=== PATIENT | male | born 1985 | race Hispanic/Latino ===

== ENCOUNTER 2016-08-05 20:33 | Observation (INO) | payer OTHER ==
[2016-08-05] MEDS ORDERED: Sodium Chloride 0.9% 1,000 ML IV STA (22:14)
--- NOTE | 2016-08-05 22:18 | ED PDOC ---
HPI: Abdomen Time Seen by Provider: 08/05/16 22:02 Chief Complaint (Nursing): Abdominal Pain Chief Complaint (Provider): abdominal pain History Per: Patient History/Exam Limitations: no limitations Onset/Duration Of Symptoms: Days (1) Current Symptoms Are (Timing): Better Location Of Pain/Discomfort: RLQ Quality Of Discomfort: Cramping, "Pain" Associated Symptoms: denies: Fever, Chills, Nausea, Vomiting, Diarrhea, Constipation, Urinary Symptoms Additional History Per: Patient Additional Complaint(s): 31 y/o male presents for eval of intermittent abdominal pain x 1 day. Patient notes pain started diffuse, has since localized to right lower abdomen. Patient notes slight improvement of symptoms after passing gas. Denies fever, cough, congestion, nausea/vomiting, changes in bowel movements (last BM today), recent travel, sick contacts. Past Medical History Reviewed: Historical Data, Nursing Documentation, Vital Signs Vital Signs: Last Vital Signs Temp 98.4 F 08/05/16 20:58 Pulse 79 08/05/16 20:58 Resp 16 08/05/16 20:58 BP 149/76 08/05/16 20:58 Pulse Ox 99 08/05/16 22:18 - Medical History PMH: No Chronic Diseases - Surgical History Surgical History: No Surg Hx - Family History Family History: States: Unknown Family Hx - Living Arrangements Living Arrangements: With Family - Home Medications Home Medications: Ambulatory Orders Medication Instructions Recorded No Known Home Med 08/05/16 - Allergies Allergies/Adverse Reactions: Allergies Allergy/AdvReac Type Severity Reaction Status Date / Time amoxicillin [From Amoxil] Allergy RASH Verified 08/05/16 21:03 Penicillins Allergy RASH Verified 08/05/16 21:03 Review of Systems ROS Statement: Except As Marked, All Systems Reviewed And Found Negative Gastrointestinal: Positive for: Abdominal Pain Physical Exam - Reviewed Nursing Documentation Reviewed: Yes Vital Signs Reviewed: Yes - Physical Exam Appears: Positive for: Well, Non-toxic, No Acute Distress Cardiovascular/Chest: Positive for: Regular Rate, Rhythm Respiratory: Positive for: Normal Breath Sounds Gastrointestinal/Abdominal: Positive for: Bowel Sounds, Soft, Tenderness (rlq; negative psoas, obturator). Negative for: Distended, Guarding, Rebound Back: Positive for: Normal Inspection Extremity: Positive for: Normal ROM Neurologic/Psych: Positive for: Alert, Oriented - Laboratory Results Result Diagrams: 08/05/16 22:42 08/05/16 22:42 - ECG O2 Sat by Pulse Oximetry: 99 - Progress ED Course And Treament: labs, CT abd/pelvis, IV fluids EXAM: CT Abdomen and Pelvis With Intravenous Contrast CLINICAL HISTORY: 31 years old, male; Pain; Abdominal pain; Localized; Right lower quadrant (rlq) ; Additional info: Rlq pain TECHNIQUE: Axial computed tomography images of the abdomen and pelvis with intravenous contrast. This CT exam was performed using one or more of the following dose reduction techniques : automated exposure control, adjustment of the mA and/or kV according to patient size, and/ or use of iterative reconstruction technique. Coronal and sagittal reformatted images were created and reviewed. CONTRAST: 90 mL of [id number] administered intravenously. EXAM DATE/TIME: Exam ordered 08/05/2016 10:14 PM COMPARISON: No relevant prior studies available. FINDINGS: Lower thorax: No acute findings. ABDOMEN: Liver: Unremarkable. No mass. Gallbladder and bile ducts: Unremarkable. No calcified stones. No ductal dilation. Pancreas: Unremarkable. No mass. No ductal dilation. Spleen: Unremarkable. No splenomegaly. Adrenals: Unremarkable. No mass. Kidneys and ureters: There is a left renal cyst measuring up to 7 mm. No hydronephrosis. Stomach and bowel: Unremarkable. No obstruction. No mucosal thickening. Appendix: The appendix measures 7-8 mm in diameter with no definite surrounding induration. PELVIS: Bladder: Unremarkable. No mass. Reproductive: Unremarkable as visualized. ABDOMEN and PELVIS: Intraperitoneal space: Unremarkable. No free air. No significant fluid collection. Bones/joints: No acute fracture. No dislocation. Soft tissues: Unremarkable. Vasculature: Unremarkable. No abdominal aortic aneurysm. Lymph nodes: Unremarkable. No enlarged lymph nodes. IMPRESSION: 1. Borderline size of the appendix with no definite surrounding induration and is thought to be within normal limits. 2. Otherwise negative CT abdomen/pelvis. Patient evaluated by ED attending Dr. Wayne; will place in observation status for surgical consult. Case discussed with Dr. Hirsch, surgical nurse practitioner on-call, regarding consult. Case discussed with Dr. Riddle, Hospitalist on-call, for placement in observation med/surg. Disposition - Clinical Impression Clinical Impression: Abdominal pain - Disposition Disposition Time: 01:45 Condition: FAIR - Pt Status Changed To: Hospital Disposition Of: Observation
[2016-08-05 22:45] LABS: BASO % 0.6 % (0.0-2.0); EOS % 0.6 % (0.0-4.0); HEMATOCRIT 44.1 % (35.0-51.0); LYMPH # 2.3 K/uL (1.0-4.3); LYMPH % 30.6 % (20.0-40.0); MEAN CELL VOLUME 92.1 fl (80.0-94.0); MEAN CORPUSCULAR HEMOGLOBIN 31.4 pg (27.0-31.0); MEAN CORPUSCULAR HGB CONC 34.1 g/dL (33.0-37.0); MEAN PLATELET VOLUME 8.4 fl (7.2-11.7); MONO # 0.7 K/uL (0.0-0.8); MONO % 8.6 % (0.0-10.0); NEUT # 4.5 K/uL (1.8-7.0); NEUT % 59.6 % (50.0-75.0); NRBC % 0.1 % (0.0-0.0); RED CELL DISTRIBUTION WIDTH 12.7 % (11.5-14.5); WHITE BLOOD COUNT 7.6 K/uL (4.8-10.8)
[2016-08-05 22:54] LABS: ALB/GLOB RATIO 1.6 (1.0-2.1); ALKALINE PHOSPHATASE 71 U/L (38-126); ALT/SGPT 41 U/L (21-72); AST/SGOT 28 U/L (17-59); BILIRUBIN,TOTAL 1.3 mg/dl (0.2-1.3); BLOOD UREA NITROGEN 15 mg/dl (9-20); CALCIUM 9.7 mg/dL (8.4-10.2); CARBON DIOXIDE 25 mmol/L (22-30); CHLORIDE 103 mmol/L (98-107); GFR AFRICAN-AMERICAN > 60; GLUCOSE,RANDOM 98 mg/dL (75-110); POTASSIUM 4.4 MMOL/L (3.6-5.0); SODIUM 140 mmol/l (132-148); TOTAL PROTEIN 8.2 G/DL (6.3-8.2)
[2016-08-05] MEDS ORDERED: Iohexol 300 50 ML ONE (23:03)
[2016-08-05] MEDS ORDERED: Sodium Chloride 0.9% 50 ML IV ONE (23:03)
[2016-08-05 23:54] LABS: PARTIAL THROMBOPLASTIN TIME 25.1 SECONDS (23.3-32.5)
--- NOTE | 2016-08-06 01:15 | CP.PCM.CON ---
<TorreyCampbell D - Last Filed: 08/06/16 01:09> History of Present Illness - History of Present Illness History of Present Illness: SURGERY CONSULT NOTE FOR DR. CONLEY 31M presents to [facility] with abdominal discomfort that he states began in the morning after a day of drinking alcohol yesterday for . Patient states he had a mixture of cheese and beer which may have caused his discomfort. He states the discomfort was diffuse and has now fully resolved. He denies any nausea or vomiting, but states he has been increasingly gassy today and feels better after passing gas. He denies any change in his bowel movement. Last time patient ate was at lunch time with no problems and states he is currently hungry. PMH: denies PSH: Colonoscopy FH: Father and grandmother diagnosed with polyps/Colon [place] Social: admits to cigars, and alcohol, denies illicit drugs Allergies: Penicillin, seasonal Past Patient History - Past Social History Smoking Status: Never Smoked - PSYCHIATRIC Hx Substance Use: No - SURGICAL HISTORY Hx Surgeries: No - ANESTHESIA Hx Anesthesia: No Meds Allergies/Adverse Reactions: Allergies Allergy/AdvReac Type Severity Reaction Status Date / Time amoxicillin [From Amoxil] Allergy RASH Verified 08/05/16 21:03 Penicillins Allergy RASH Verified 08/05/16 21:03 Physical Exam - Constitutional Appears: Non-toxic, No Acute Distress - Head Exam Head Exam: ATRAUMATIC - Eye Exam Eye Exam: EOMI, PERRL - ENT Exam ENT Exam: Mucous Membranes Moist - Respiratory Exam Respiratory Exam: Clear to Auscultation Bilateral, NORMAL BREATHING PATTERN - Cardiovascular Exam Cardiovascular Exam: REGULAR RHYTHM, +S1, +S2 - GI/Abdominal Exam GI & Abdominal Exam: Soft. absent: Distended, Firm, Guarding, Rebound, Rigid, Tenderness - Extremities Exam Extremities exam: Negative for: pedal edema, tenderness - Neurological Exam Neurological exam: Alert, Oriented x3 - Psychiatric Exam Psychiatric exam: Normal Affect, Normal Mood - Skin Skin Exam: Dry, Intact, Normal Color, Warm Results - Vital Signs Recent Vital Signs: Last Vital Signs Temp 98.4 F 08/05/16 20:58 Pulse 79 08/05/16 20:58 Resp 16 08/05/16 20:58 BP 149/76 08/05/16 20:58 Pulse Ox 99 08/05/16 22:18 - Labs Result Diagrams: 08/05/16 22:42 08/05/16 22:42 Labs: Laboratory Results - last 24 hr 08/05/16 08/05/16 08/05/16 22:42 22:42 22:42 WBC 7.6 RBC 4.79 Hgb 15.0 Hct 44.1 MCV 92.1 MCH 31.4 H MCHC 34.1 RDW 12.7 Plt Count 227 MPV 8.4 Neut % (Auto) 59.6 Lymph % (Auto) 30.6 [place] % (Auto) 8.6 Eos % (Auto) 0.6 Baso % (Auto) 0.6 Neut # 4.5 Lymph # 2.3 [place] # 0.7 Eos # 0.0 Baso # 0.0 PT 10.1 INR 0.97 APTT 25.1 Sodium 140 Potassium 4.4 Chloride 103 Carbon Dioxide 25 Anion Gap 16 BUN 15 Creatinine 0.8 Est GFR ( Amer) > 60 Est GFR (Non-Af Amer) > 60 Random Glucose 98 Calcium 9.7 Total Bilirubin 1.3 AST 28 ALT 41 Alkaline Phosphatase 71 Total Protein 8.2 Albumin 5.1 H Globulin 3.2 Albumin/Globulin Ratio 1.6 Assessment & Plan - Assessment and Plan (Free Text) Assessment: 31M presents with abdominal discomfort 2/2 likely gastritis vs appendicitis CT: Appendix 7mm with no induration, thought to be within normal/borderline limit Plan: - keep patient on observation - NPO, IVF, Pain control - serial abdominal exams - Re-evaluate patient in AM for any change in symptoms Discussed with Dr. Yael Hirsch, PGY1 <Galen Conley - Last Filed: 08/10/16 18:49> Results - Vital Signs Recent Vital Signs: Last Vital Signs Temp 98 F 08/06/16 08:00 Pulse 73 08/06/16 08:00 Resp 20 08/06/16 08:00 BP 125/78 08/06/16 08:00 Pulse Ox 99 08/06/16 08:00 - Labs Result Diagrams: 08/06/16 08:13 08/06/16 08:13 Attending/Attestation - Attestation I have personally seen and examined this patient.: Yes I have fully participated in the care of the patient.: Yes I have reviewed all pertinent clinical information: Yes Notes (Text): 08/10/16 18:49 Pt was seen and examined at bedside on 08/06/16 Agree with above note and assessment Pt with abdominal pain No clinical signs of acute appendicitis F/U as out pt.
[2016-08-06] MEDS ORDERED: Sodium Chloride 0.9% 1,000 ML IV SCH (01:30)
--- NOTE | 2016-08-06 02:19 | CP.PCM.HP ---
History of Present Illness - History of Present Illness History of Present Illness: PCP: None Chief Complaint: Abdominal Pain HPI: 31 years old male with no significant past medical hx comes with one day of cramping intermittent abdominal pains, starting at the periumbilical region and now is localized at the Right Lower quadrant. It has the character of a gas pain as per the patient. No nausea, vomits, diarrhea nor constipation, fever, chest pain, dysuria nor urinary frequency. He admits to drinking on the previous day and his last bowel movement was Prior to coming to the ED. PMD: No past medical hx PSH: Elisabeth past surgeries SH: Drinks Alcohol socially,No substance abuse, never smoked; Live with the family FH: Unknown Family Hx Allergies: Amoxicillin/ Penicillin Present on Admission - Present on Admission Any Indicators Present on Admission: No History of DVT/PE: No History of Uncontrolled Diabetes: No Urinary Catheter: No Decubitus Ulcer Present: No Review of Systems - Constitutional Constitutional: absent: Anorexia, Chills, Fatigue, Fever, Headache - EENT Eyes: absent: Diplopia, Floaters, Photophobia, Requires Corrective Lenses, Sees Flashes Ears: absent: Decreased Hearing, Ear Discharge, Ear Pain, Tinnitus Nose/Mouth/Throat: absent: Epistaxis, Nasal Congestion, Nasal Discharge, Sinus Pain, Sinus Pressure - Cardiovascular Cardiovascular: absent: Chest Pain, Dyspnea, Edema - Respiratory Respiratory: absent: Cough, Dyspnea, Wheezing - Gastrointestinal Gastrointestinal: Abdominal Pain. absent: Diarrhea, Nausea, Vomiting - Genitourinary Genitourinary: absent: Dysuria, Flank Pain, Hematuria, Urinary Frequency - Musculoskeletal Musculoskeletal: absent: Muscle Cramps, Muscle Weakness, Myalgias - Integumentary Integumentary: absent: Pruritus, Rash, Skin Ulcer, Sores, Striae, Swelling - Neurological Neurological: absent: Confusion, Focal Weakness, Headaches, Vertigo - Psychiatric Psychiatric: absent: Anxiety, Depression, Panic Attacks - Endocrine Endocrine: absent: Palpitations, Polydipsia, Polyphagia, Polyuria - Hematologic/Lymphatic Hematologic: absent: Easy Bleeding, Easy Bruising Past Patient History - Past Medical History & Family History Past Medical History?: No - Past Social History Smoking Status: Never Smoked Chewing Tobacco Use: No Cigar Use: No Alcohol: Occasional Drugs: Denies Home Situation {Lives}: With Family - CARDIAC Hx Cardiac Disorders: No - NEUROLOGICAL Hx Neurological Disorder: No - HEENT Hx HEENT Problems: No - RENAL Hx Chronic Kidney Disease: No - ENDOCRINE/METABOLIC Hx Endocrine Disorders: No - HEMATOLOGICAL/ONCOLOGICAL Hx Blood Disorders: No - INTEGUMENTARY Hx Dermatological Problems: No - MUSCULOSKELETAL/RHEUMATOLOGICAL Hx Musculoskeletal Disorders: No - GASTROINTESTINAL Hx Gastrointestinal Disorders: No - GENITOURINARY/GYNECOLOGICAL Hx Genitourinary Disorders: No - PSYCHIATRIC Hx Psychophysiologic Disorder: No Hx Substance Use: No - SURGICAL HISTORY Hx Surgeries: No - ANESTHESIA Hx Anesthesia: No Meds Allergies/Adverse Reactions: Allergies Allergy/AdvReac Type Severity Reaction Status Date / Time amoxicillin [From Amoxil] Allergy RASH Verified 08/05/16 21:03 Penicillins Allergy RASH Verified 08/05/16 21:03 Physical Exam - Constitutional Appears: No Acute Distress - Head Exam Head Exam: ATRAUMATIC, NORMAL INSPECTION, NORMOCEPHALIC - Eye Exam Eye Exam: EOMI, Normal appearance Pupil Exam: NORMAL ACCOMODATION, PERRL - ENT Exam ENT Exam: Mucous Membranes Moist, Normal Exam, Normal External Ear Exam, Normal Oropharynx - Neck Exam Neck exam: Positive for: Full Rom, Normal Inspection. Negative for: Lymphadenopathy, Tenderness - Respiratory Exam Respiratory Exam: Clear to Auscultation Bilateral. absent: Rales, Rhonchi, Wheezes - Cardiovascular Exam Cardiovascular Exam: REGULAR RHYTHM, RRR, +S1, +S2. absent: Gallop, JVD - GI/Abdominal Exam GI & Abdominal Exam: Diminished Bowel Sounds, Soft Additional comments: Flat Soft, Non tender on this exam, no guarding nor rebound tenderness, bowel sounds reduced. - Rectal Exam Rectal Exam: Deferred - Extremities Exam Extremities exam: Positive for: full ROM, normal inspection, pedal edema. Negative for: tenderness - Back Exam Back exam: NORMAL INSPECTION. absent: CVA tenderness (L), CVA tenderness (R) - Neurological Exam Neurological exam: Alert, CN II-XII Intact, Oriented x3, Reflexes Normal - Psychiatric Exam Psychiatric exam: Normal Affect, Normal Mood - Skin Skin Exam: Dry, Intact, Normal Color, Warm Results - Vital Signs Recent Vital Signs: Last Vital Signs Temp 98.2 F 08/06/16 01:59 Pulse 75 08/06/16 01:59 Resp 16 08/06/16 01:59 BP 122/62 08/06/16 01:59 Pulse Ox 98 08/06/16 01:59 - Labs Result Diagrams: 08/05/16 22:42 08/05/16 22:42 Labs: Laboratory Results - last 24 hr 08/06/16 01:45 Lipase 63 - Imaging and Cardiology CT scan - abdomen Status: Report reviewed by me Additional comment: FINDINGS: Lower thorax: No acute findings. ABDOMEN: Liver: Unremarkable. No mass. Gallbladder and bile ducts: Unremarkable. No calcified stones. No ductal dilation. Pancreas: Unremarkable. No mass. No ductal dilation. Spleen: Unremarkable. No splenomegaly. Adrenals: Unremarkable. No mass. Kidneys and ureters: There is a left renal cyst measuring up to 7 mm. No hydronephrosis. Stomach and bowel: Unremarkable. No obstruction. No mucosal thickening. Appendix: The appendix measures 7-8 mm in diameter with no definite surrounding induration. PELVIS: Bladder: Unremarkable. No mass. Reproductive: Unremarkable as visualized. ABDOMEN and PELVIS: Intraperitoneal space: Unremarkable. No free air. No significant fluid collection. Bones/joints: No acute fracture. No dislocation. Soft tissues: Unremarkable. Vasculature: Unremarkable. No abdominal aortic aneurysm. Lymph nodes: Unremarkable. No enlarged lymph nodes. IMPRESSION: 1. Borderline size of the appendix with no definite surrounding induration and is thought to be within normal limits. 2. Otherwise negative CT abdomen/pelvis. Assessment & Plan - Assessment and Plan (Free Text) Assessment: #. Abdominal pain Plan: 31 years old male with no significant past medical hx comes with one day of cramping intermittent abdominal pains, starting at the periumbilical region and now is localized at the Right Lower quadrant. #. Abdominal pain r/o appendicitis -Consult Surgery Dr Conley - NPO - IV Fluids - Follow CBC #. DVT Prophylaxis with SCD #. Code Status: Full - Date & Time Date: 08/06/16 Time: 02:19
[2016-08-06 08:27] LABS: HEMATOCRIT 42.9 % (35.0-51.0); MEAN CELL VOLUME 91.8 fl (80.0-94.0); MEAN CORPUSCULAR HEMOGLOBIN 31.4 pg (27.0-31.0); MEAN CORPUSCULAR HGB CONC 34.2 g/dL (33.0-37.0); RED CELL DISTRIBUTION WIDTH 12.7 % (11.5-14.5); WHITE BLOOD COUNT 6.1 K/uL (4.8-10.8)
[2016-08-06 08:36] LABS: ALB/GLOB RATIO 1.6 (1.0-2.1); ALKALINE PHOSPHATASE 60 U/L (38-126); ALT/SGPT 35 U/L (21-72); AST/SGOT 25 U/L (17-59); BILIRUBIN,TOTAL 1.6 mg/dl (0.2-1.3); BLOOD UREA NITROGEN 11 mg/dl (9-20); CALCIUM 9.3 mg/dL (8.4-10.2); CARBON DIOXIDE 26 mmol/L (22-30); CHLORIDE 105 mmol/L (98-107); GFR AFRICAN-AMERICAN > 60; GLUCOSE,RANDOM 95 mg/dL (75-110); SODIUM 141 mmol/l (132-148); TOTAL PROTEIN 7.4 G/DL (6.3-8.2)
--- NOTE | 2016-08-06 09:02 | CT ---
PROCEDURE: CT Abdomen and Pelvis with contrast HISTORY: rlq pain COMPARISON: None. TECHNIQUE: Contrast dose: 100 cc of Omnipaque 300 Radiation dose: Total exam DLP = 593 mGy-cm. This CT exam was performed using one or more of the following dose reduction techniques: Automated exposure control, adjustment of the mA and/or kV according to patient size, and/or use of iterative reconstruction technique. FINDINGS: LOWER THORAX: Unremarkable. LIVER: Unremarkable. No gross lesion or ductal dilatation. GALLBLADDER AND BILE DUCTS: Unremarkable. PANCREAS: Unremarkable. No gross lesion or ductal dilatation. SPLEEN: Unremarkable. ADRENALS: Unremarkable. No mass. KIDNEYS AND URETERS: Unremarkable. No hydronephrosis. No solid mass. VASCULATURE: Unremarkable. No aortic aneurysm. BOWEL: Unremarkable. No obstruction. No gross mural thickening. APPENDIX: Normal appendix. PERITONEUM: Unremarkable. No free fluid. No free air. LYMPH NODES: Unremarkable. No enlarged lymph nodes. BLADDER: Unremarkable. REPRODUCTIVE: Unremarkable. BONES: No acute fracture. OTHER FINDINGS: None. IMPRESSION: Unremarkable contrast enhanced CT of the abdomen and pelvis.
[2016-08-06 10:42] VITALS: BP 125/78; PULSE 73; RESP 20; TEMP 98; O2SAT 99
--- NOTE | 2016-08-06 11:34 | CP.PCM.DIS ---
Provider - Provider Date of Admission: 08/06/16 01:18 Attending physician: Harjeet Riddle Primary care physician: None Consults: surgery consult Time Spent in preparation of Discharge (in minutes): 15 Hospital Course - Lab Results Lab Results: Most Recent Lab Values WBC 6.1 K/uL (4.8-10.8) 08/06/16 08:13 RBC 4.67 Mil/uL (4.40-5.90) 08/06/16 08:13 Hgb 14.7 g/dL (12.0-18.0) 08/06/16 08:13 Hct 42.9 % (35.0-51.0) 08/06/16 08:13 MCV 91.8 fl (80.0-94.0) 08/06/16 08:13 MCH 31.4 pg (27.0-31.0) H 08/06/16 08:13 MCHC 34.2 g/dL (33.0-37.0) 08/06/16 08:13 RDW 12.7 % (11.5-14.5) 08/06/16 08:13 Plt Count 206 K/uL (130-400) 08/06/16 08:13 MPV 8.4 fl (7.2-11.7) 08/05/16 22:42 Neut % (Auto) 59.6 % (50.0-75.0) 08/05/16 22:42 Lymph % (Auto) 30.6 % (20.0-40.0) 08/05/16 22:42 [place] % (Auto) 8.6 % (0.0-10.0) 08/05/16 22:42 Eos % (Auto) 0.6 % (0.0-4.0) 08/05/16 22:42 Baso % (Auto) 0.6 % (0.0-2.0) 08/05/16 22:42 Neut # 4.5 K/uL (1.8-7.0) 08/05/16 22:42 Lymph # 2.3 K/uL (1.0-4.3) 08/05/16 22:42 [place] # 0.7 K/uL (0.0-0.8) 08/05/16 22:42 Eos # 0.0 K/uL (0.0-0.7) 08/05/16 22:42 Baso # 0.0 K/uL (0.0-0.2) 08/05/16 22:42 PT 10.1 SECONDS (9.6-11.2) 08/05/16 22:42 INR 0.97 (0.92-1.08) 08/05/16 22:42 APTT 25.1 SECONDS (23.3-32.5) 08/05/16 22:42 Sodium 141 mmol/l (132-148) 08/06/16 08:13 Potassium 4.0 MMOL/L (3.6-5.0) 08/06/16 08:13 Chloride 105 mmol/L (98-107) 08/06/16 08:13 Carbon Dioxide 26 mmol/L (22-30) 08/06/16 08:13 Anion Gap 14 (10-20) 08/06/16 08:13 BUN 11 mg/dl (9-20) 08/06/16 08:13 Creatinine 0.8 mg/dL (0.8-1.5) 08/06/16 08:13 Est GFR ( Amer) > 60 08/06/16 08:13 Est GFR (Non-Af Amer) > 60 08/06/16 08:13 Random Glucose 95 mg/dL (75-110) 08/06/16 08:13 Calcium 9.3 mg/dL (8.4-10.2) 08/06/16 08:13 Total Bilirubin 1.6 mg/dl (0.2-1.3) H 08/06/16 08:13 AST 25 U/L (17-59) 08/06/16 08:13 ALT 35 U/L (21-72) 08/06/16 08:13 Alkaline Phosphatase 60 U/L (38-126) 08/06/16 08:13 Total Protein 7.4 G/DL (6.3-8.2) 08/06/16 08:13 Albumin 4.5 g/dL (3.5-5.0) 08/06/16 08:13 Globulin 2.9 gm/dL (2.2-3.9) 08/06/16 08:13 Albumin/Globulin Ratio 1.6 (1.0-2.1) 08/06/16 08:13 Lipase 63 U/L (23-300) 08/06/16 01:45 - Hospital Course Hospital Course: 31 years old male with no significant past medical hx comes with one day of cramping intermittent abdominal pains, starting at the periumbilical region and now is localized at the Right Lower quadrant. Ct abdomen showed no appendictis WBC- normal no fever. Patient placed under observation for acute appendicitis.Clinically improved, pain resolved unlikely appendicitis will discharge patient home Discharge Exam - Head Exam Head Exam: ATRAUMATIC, NORMAL INSPECTION, NORMOCEPHALIC - Eye Exam Eye Exam: PERRL Pupil Exam: NORMAL ACCOMODATION - ENT Exam ENT Exam: Mucous Membranes Moist, Normal Exam - Neck Exam Neck exam: Full Rom, Normal Inspection - Respiratory Exam Respiratory Exam: Clear to PA & Lateral, NORMAL BREATHING PATTERN. absent: Rales, Rhonchi, Wheezes - Cardiovascular Exam Cardiovascular Exam: REGULAR RHYTHM, RRR, +S1, +S2. absent: JVD - GI/Abdominal Exam GI & Abdominal Exam: Normal Bowel Sounds, Soft. absent: Distended, Guarding, Rebound, Tenderness - Rectal Exam Rectal Exam: Deferred - Extremities Exam Extremities exam: normal capillary refill, normal inspection, pedal pulses present - Back Exam Back exam: NORMAL INSPECTION - Neurological Exam Neurological exam: Alert, CN II-XII Intact, Oriented x3, Reflexes Normal - Psychiatric Exam Psychiatric exam: Normal Affect, Normal Mood - Skin Skin Exam: Dry, Intact, Normal Color, Warm Discharge Plan - Follow Up Plan Condition: GOOD Disposition: HOME/ ROUTINE Patient education suggested?: Yes
== END 2016-08-06 16:20 | disposition home or self-care (01) ==
LOC: H.ER 20:33 → H.ERHOLD 08-06 01:18 → H.PEDS 08-06 03:27
PROVIDERS: ADMIT Internal Medicine; ATTEND Internal Medicine
DX: R10.31 Right lower quadrant pain (principal)